=== PATIENT | male | born 2005 ===

== ENCOUNTER 2024-08-02 00:54 | Outpatient (CLI) | payer BC, SELFPAY | END 2024-08-02 00:55 | disposition home or self-care (01) | PROVIDERS: Visit Provider Family Medicine | DX: R45.851 Suicidal ideations (principal) | CPT/HCPCS: A0425; A0427 ==

== ENCOUNTER 2024-08-02 01:22 | Emergency (ER) | payer BC, SELFPAY ==
[2024-08-02] VITALS (30 sets, daily range): BP systolic 102–120; BP diastolic 60–80; PULSE 58–78; RESP 16–18; TEMP 36.6; O2SAT 94–100; BMI 33.9
--- NOTE | 2024-08-02 01:34 | CRLHL7_ITS ---
For Patients: As a result of the Cures Act, medical imaging exams and procedure reports are released immediately into your electronic medical record. You may view this report before your referring provider. If you have questions, please contact your health care provider. INDICATION: Intoxication. Concern for head injury. TECHNIQUE: CT head without contrast. COMPARISON: None. FINDINGS: No acute intracranial hemorrhage. No CT evidence of recent territorial infarct. No hydrocephalus or midline shift. Normal cerebral parenchymal volume. Visualized paranasal sinuses and mastoid air cells are well ventilated. No acute calvarial fracture is evident. IMPRESSION: No acute intracranial abnormality. Please note that all CT scans at this facility use dose modulation, iterative reconstruction, and/or weight-based dosing when appropriate to reduce radiation dose to as low as reasonably achievable. Dictated by Guevara Moody MD @ 08/02/2024 2:34:43 AM (Electronically Signed)
--- NOTE | 2024-08-02 01:34 | CRLHL7_ITS ---
For Patients: As a result of the Century Cures Act, medical imaging exams and procedure reports are released immediately into your electronic medical record. You may view this report before your referring provider. If you have questions, please contact your health care provider. INDICATION: Intoxication. Concern for injury. TECHNIQUE: CT cervical spine without contrast. COMPARISON: None. FINDINGS: No acute fracture or suspicious osseous lesion. Atlantoaxial and atlanto occipital alignment are maintained. Cervical vertebral bodies maintain normal heights with straightened lordosis. No significant spondylolisthesis. No significant spondylosis or disc space height loss. Paraspinal soft tissues grossly within normal limits. Visualized lung apices are clear. IMPRESSION: No acute cervical spine abnormality. Please note that all CT scans at this facility use dose modulation, iterative reconstruction, and/or weight-based dosing when appropriate to reduce radiation dose to as low as reasonably achievable. Dictated by Guevara Moody MD @ 08/02/2024 2:37:54 AM (Electronically Signed)
--- NOTE | 2024-08-02 01:40 | ED_ITS ---
HPI - Alcohol General Date Seen: 08/02/24 Chief Complaint: Alcohol/Intoxication Stated Complaint: ETOH Time Seen by Provider: 08/02/24 01:23 Source: patient, EMS and RN notes reviewed Mode of arrival: EMS Limitations: altered mental status History of Present Illness HPI narrative: Patient is a 19-year-old gentleman from [place], who was found on the floor of a residence, friends called EMS, because they were unable to wake him up. He threw up once on the way here, they did give him Zofran, initially was a red medical, due to hypotension. And saturations at 72%. Here patient really gives no history but withdrawals to pain and able to tell me he goes to [place], and was drinking tonight 8 drinks. Denies falling hitting his head, denies any drugs or illicit substances. Is on no chronic medications and has no allergies. GCS is 11/15. Score withdrawals and localizes pain, confused, eye opening to pain. Denies falling and hitting his head, complaint: alcohol intoxication Last drink: hours (ago) Previous visits for alcohol intoxication: No Recent trauma: No Associated symptoms: vomiting Severity: severe Treatments prior to arrival: anti-emetics Review of Systems Status of ROS Reports: unobtainable due to medical condition and unobtainable due to mental status Exam Narrative: Exam Narrative: On examination in room 8, he is in no apparent distress his vital signs are stable, the nurse has him on oxygen but on room air he was 97%. GCS is 11/15. Nontoxic looking, with some vomitus on the lower extremities, withdrawals all his extremities to pain, I do not see any evidence of any trauma or is head or neck. Pupils equal round reactive to light, nystagmus is noted. Oropharynx is normal, cervical spine nontender, log-rolled, no palpable tenderness bruising or injury noted over his bat back, torso, good air entry bilaterally heart sounds no clicks murmurs or gallops abdomen is soft, no guarding no organomegaly bowel sounds are normal, pelvis is normal stable to rocking, normal male genitalia uncircumcised, moves all extremities independently and well no evidence of trauma. Smells of alcohol Const: Vital Signs, click to edit/add: Vital Signs - 24 hr 08/02/24 01:34 08/02/24 01:34 08/02/24 01:37 Temperature 97.8 F Pulse Rate Pulse Rate [Pulse Oximeter] 65 Respiratory Rate 16 Blood Pressure Blood Pressure [Ri ght Upper Arm] 120/80 Pulse Oximetry 100 100 97 Oxygen Delivery Me thod Room Air Room Air 08/02/24 01:49 08/02/24 01:56 08/02/24 02:00 Temperature Pulse Rate 58 L 60 74 Pulse Rate [Pulse Oximeter] Respiratory Rate 18 Blood Pressure 109/71 Blood Pressure [Ri ght Upper Arm] Pulse Oximetry 96 98 97 Oxygen Delivery Me thod 08/02/24 02:02 08/02/24 02:18 08/02/24 02:30 Temperature Pulse Rate 60 63 Pulse Rate [Pulse Oximeter] Respiratory Rate 16 Blood Pressure 110/75 105/73 Blood Pressure [Ri ght Upper Arm] Pulse Oximetry 100 99 Oxygen Delivery Me thod 08/02/24 02:32 08/02/24 02:45 08/02/24 03:02 Temperature Pulse Rate 62 69 71 Pulse Rate [Pulse Oximeter] Respiratory Rate 16 16 Blood Pressure 108/63 107/62 Blood Pressure [Ri ght Upper Arm] Pulse Oximetry 100 99 98 Oxygen Delivery Me thod 08/02/24 03:15 08/02/24 03:30 08/02/24 03:32 Temperature Pulse Rate 65 61 60 Pulse Rate [Pulse Oximeter] Respiratory Rate 16 Blood Pressure 105/66 Blood Pressure [Ri ght Upper Arm] Pulse Oximetry 100 98 96 Oxygen Delivery Me thod 08/02/24 03:45 08/02/24 04:00 08/02/24 04:02 Temperature Pulse Rate 68 74 73 Pulse Rate [Pulse Oximeter] Respiratory Rate 16 16 Blood Pressure 102/60 Blood Pressure [Ri ght Upper Arm] Pulse Oximetry 95 94 94 Oxygen Delivery Me thod 08/02/24 04:15 08/02/24 04:30 08/02/24 04:32 Temperature Pulse Rate 74 65 69 Pulse Rate [Pulse Oximeter] Respiratory Rate 16 Blood Pressure 106/72 Blood Pressure [Ri ght Upper Arm] Pulse Oximetry 95 99 97 Oxygen Delivery Me thod 08/02/24 04:45 08/02/24 05:00 08/02/24 05:02 Temperature Pulse Rate 66 71 72 Pulse Rate [Pulse Oximeter] Respiratory Rate 16 Blood Pressure 108/77 Blood Pressure [Ri ght Upper Arm] Pulse Oximetry 99 96 96 Oxygen Delivery Me thod 08/02/24 05:15 08/02/24 05:30 08/02/24 05:32 Temperature Pulse Rate 78 63 62 Pulse Rate [Pulse Oximeter] Respiratory Rate 16 Blood Pressure 103/60 Blood Pressure [Ri ght Upper Arm] Pulse Oximetry 94 96 96 Oxygen Delivery Me thod 08/02/24 05:45 08/02/24 06:00 08/02/24 06:01 Temperature Pulse Rate 72 77 64 Pulse Rate [Pulse Oximeter] Respiratory Rate Blood Pressure 106/71 Blood Pressure [Ri ght Upper Arm] Pulse Oximetry 95 94 96 Oxygen Delivery Me thod 08/02/24 06:15 Temperature Pulse Rate 77 Pulse Rate [Pulse Oximeter] Respiratory Rate Blood Pressure Blood Pressure [Ri ght Upper Arm] Pulse Oximetry 94 Oxygen Delivery Me thod Documenting provider has reviewed patient's vital signs: yes Course Course ED Course: Patient is now off oxygen, maintaining his saturations at 97% on room air, able to do purposeful movements, and clearly clinically improving. Head CT and neck CT both show no acute changes. Blood alcohol returned at 0.01 which is basically normal. I wonder if this is drug related, he will have to be watched till he is clinically sober, and given his condition this will likely be in the morning. Reevaluation(s) Time of Reevaluation #1: 03:37 Reevaluation #1: Off oxygen, vital signs remained stable, easily redirectable, consistent with alcohol intoxication, as the repeat laboratory showed 0.23, initial was 0.01 which was hard to believe. We will watch him for the next few hours, once he is clinically sober he will be dischargeable. Time of Reevaluation #2: 06:59 Reevaluation #2: Patient was able to walk to the bathroom, he stood and I discussed with him for about 10 minutes is at risk alcohol use. He does not have much recollection of last night, in that he does need remember coming in by ambulance. Luckily he is doing fine now, and he is clinically sober and I think we can discharge him home. Vital Signs Vital signs: Initial Vital Signs Respiratory Effort Normal, Spontaneous, Non-Labored 08/02/24 01:34 Respiratory Depth Normal 08/02/24 01:34 Respiratory Pattern Normal 08/02/24 01:34 Pulse Oximetry 100 08/02/24 01:34 Oxygen Delivery Method Room Air 08/02/24 01:34 Vital Signs Pulse Oximetry 100 08/02/24 01:34 Oxygen Delivery Method Room Air 08/02/24 01:34 Temperature 97.8 F 08/02/24 01:37 Pulse Rate 77 08/02/24 06:15 Respiratory Rate 16 08/02/24 05:32 Blood Pressure 106/71 08/02/24 06:01 Pulse Oximetry 94 08/02/24 06:15 Oxygen Delivery Method Room Air 08/02/24 01:37 Medications Administered Medications: Discontinued Medications Generic Name Dose Route Start Last Admin Trade Name Freq PRN Reason Stop Dose Admin Sodium Chloride 1,000 mls @ 1,000 mls/hr 08/02/24 01:45 08/02/24 03:34 0.9 % Sodium Chloride 1000 Ml IV 08/02/24 02:44 Infused .Q1H BHAVESH Infusion MDM - Alcohol MDM Narrative Medical decision making narrative: Multiple differential diagnoses were considered for altered mental status. The life-threatening differential diagnosis considered include: Meningitis/encephalitis, bacteremia, subdural, cerebrovascular accident, SAH, and hypertensive encephalopathy. Other differential diagnosis included include medication effect, hypoxia, hypoglycemia, hypercalcemia, hypo or hypernatremia, hypothyroidism, hepatic encephalopathy, carbon monoxide poisoning, UTI, pneumonia, depression, seizure, as well as other etiologies. I suspect this is from alcohol, blood pressures are normal, we will go ahead and do labs, I will keep the IV. He will need to be monitored but at the current time he does not need to be intubated. He is maintaining his airway well. Get the normal labs, drug screen, liver function tests, acetaminophen salicylates Differential Diagnosis Differential diagnosis: Likely alcohol withdrawal delirium, hypomagnesemia, alcohol intoxication, alcohol ketoacidosis and alcohol withdrawal seizure Medical Records Attestation: I reviewed the patient's medical records. Medical records narrative: No previous records in our system Lab Data Attestation: I reviewed the patient's lab results. Lab results narrative: I had them rerun the alcohol level, this did come back at 0.23 which is consistent clinically with the situation I see. He was not clinically consistent with a 0.01 initially. Labs: Lab Results 08/02/24 08/02/24 08/02/24 Range/Units 01:46 01:49 02:23 WBC 6.75 (4.50-11.00) K/uL RBC 4.31 (4.30-5.90) m/uL Hgb 12.2 L (13.5-17.5) gm/dL Hct 37.2 (37.0-53.0) % MCV 86 (80-100) fL MCH 28 (26-34) pg MCHC 33 (32-36) gm/dL RDW Coeff of Tutu 13.2 (11.5-15.5) % Plt Count 156 (140-440) K/uL Neut % (Auto) 60.9 (42.0-72.0) % Lymph % (Auto) 32.1 (20-44) % [place] % (Auto) 5.6 (0.0-11.0) % Eos % (Auto) 0.7 (0.0-7.0) % Baso % (Auto) 0.4 (0.0-3.0) % Neut # (Auto) 4.10 (1.7-7.0) K/uL Lymph # (Auto) 2.17 (0.90-2.90) K/uL [place] # (Auto) 0.40 (0.00-0.90) K/UL Eos # (Auto) 0.05 (0.00-0.50) K/uL Baso # (Auto) 0.03 (0.00-0.30) K/uL Abs Immat Gran (auto) 0.02 (0.00-0.30) K/uL Imm/Tot Granulo (auto) 0.3 % Carboxyhemoglobin (0.0-5.0) % Sodium 143 (135-149) mmol/L Potassium 3.3 L (3.6-5.1) mmol/L Chloride 108 (96-114) mmol/L Carbon Dioxide 26 (20-32) mmol/L Anion Gap 9 (7-15) mEq/L BUN 18 (5-24) mg/dL Creatinine 1.0 (0.5-1.5) mg/dL Estimated Creat Clear 128.26 Estimated GFR 110 ml/min Glucose 114 (60-115) mg/dL Calcium 8.2 L (8.4-10.6) mg/dL Total Bilirubin 0.2 (0.1-1.5) mg/dL Direct Bilirubin 0.1 (0.0-0.5) mg/dL AST 78 H (12-35) U/L ALT 58 H (4-50) U/L Alkaline Phosphatase 52 (40-150) U/L Troponin I < 0.01 L (0.01-0.04) ng/mL Total Protein 6.8 (6.0-8.3) g/dL Albumin 4.3 (3.3-5.0) g/dL Salicylates < 1.0 L (1.0-10) mg/dL Acetaminophen < 10.0 L (10.0-30.0) ug/mL Ethyl Alcohol 0.23 H (0.01-0.03) % 08/02/24 Range/Units 03:11 WBC (4.50-11.00) K/uL RBC (4.30-5.90) m/uL Hgb (13.5-17.5) gm/dL Hct (37.0-53.0) % MCV (80-100) fL MCH (26-34) pg MCHC (32-36) gm/dL RDW Coeff of Tutu (11.5-15.5) % Plt Count (140-440) K/uL Neut % (Auto) (42.0-72.0) % Lymph % (Auto) (20-44) % [place] % (Auto) (0.0-11.0) % Eos % (Auto) (0.0-7.0) % Baso % (Auto) (0.0-3.0) % Neut # (Auto) (1.7-7.0) K/uL Lymph # (Auto) (0.90-2.90) K/uL [place] # (Auto) (0.00-0.90) K/UL Eos # (Auto) (0.00-0.50) K/uL Baso # (Auto) (0.00-0.30) K/uL Abs Immat Gran (auto) (0.00-0.30) K/uL Imm/Tot Granulo (auto) % Carboxyhemoglobin 2.4 (0.0-5.0) % Sodium (135-149) mmol/L Potassium (3.6-5.1) mmol/L Chloride (96-114) mmol/L Carbon Dioxide (20-32) mmol/L Anion Gap (7-15) mEq/L BUN (5-24) mg/dL Creatinine (0.5-1.5) mg/dL Estimated Creat Clear Estimated GFR ml/min Glucose (60-115) mg/dL Calcium (8.4-10.6) mg/dL Total Bilirubin (0.1-1.5) mg/dL Direct Bilirubin (0.0-0.5) mg/dL AST (12-35) U/L ALT (4-50) U/L Alkaline Phosphatase (40-150) U/L Troponin I (0.01-0.04) ng/mL Total Protein (6.0-8.3) g/dL Albumin (3.3-5.0) g/dL Salicylates (1.0-10) mg/dL Acetaminophen (10.0-30.0) ug/mL Ethyl Alcohol 0.22 H (0.01-0.03) % ECG Data Attestation: I personally reviewed and interpreted this ECG as follows: ECG interpretation date: 08/02/24 Prior ECG tracings: not available for review Interpretation: EKG shows normal sinus rhythm, normal QRS QT QTC. Early repolarization is noted, Assessment: Normal EKG Discharge Plan Discharge Clinical Impression: Alcoholic intoxication Patient Disposition: Home, Self-Care Instructions: Alcohol Intoxication (ED), Abuse of Alcohol (DC), At-Risk Alcohol Use (ED) Additional Instructions: Home rest, avoidance of alcohol for the next 48 hours, as we discussed your liver enzymes are elevated telling me that the alcohol is harming your liver, and you should avoid alcohol at least keep it within 2 oz per day. If you need help with this issue, following up with the nurse practitioner in [place] would be a good idea. Return as needed. Activity Level: Light activity Discharge Diet: Regular Follow Up/Referrals: Provider,Not a Local [Primary Care Provider] - Stand Alone Forms: [employer] Info Instructions
[2024-08-02 01:50] LABS: Basophils Absolute Auto 0.03 K/uL (0.00-0.30); Basophils Percent Auto 0.4 % (0.0-3.0); Eosinophils Absolute Auto 0.05 K/uL (0.00-0.50); Eosinophils Percent Auto 0.7 % (0.0-7.0); Hematocrit 37.2 % (37.0-53.0); Hemoglobin* 12.2 gm/dL (13.5-17.5); Immature Granulocytes Abs Auto 0.02 K/uL (0.00-0.30); Immature Granulocytes Pct Auto 0.3 %; Lymphocytes Absolute Auto 2.17 K/uL (0.90-2.90); Lymphocytes Percent Auto 32.1 % (20-44); Mean Corpuscular HGB Conc 33 gm/dL (32-36); Mean Corpuscular Hemoglobin 28 pg (26-34); Mean Corpuscular Volume 86 fL (80-100); Monocytes Percent Auto 5.6 % (0.0-11.0); Neutrophils Percent Auto 60.9 % (42.0-72.0); Platelet Count* 156 K/uL (140-440); RDW Coefficient of Variation % 13.2 % (11.5-15.5); Red Blood Count 4.31 m/uL (4.30-5.90); White Blood Count* 6.75 K/uL (4.50-11.00)
[2024-08-02] MEDS: 0.9 % SODIUM CHLORIDE 1000 ml 1,000 ML IV (01:55)
[2024-08-02 02:00] LABS: Slide Review Reflex No
[2024-08-02 02:02] LABS: Albumin* 4.3 g/dL (3.3-5.0)
[2024-08-02 02:03] LABS: Chloride* 108 mmol/L (96-114); Potassium* 3.3 mmol/L (3.6-5.1); Sodium* 143 mmol/L (135-149)
[2024-08-02 02:05] LABS: Anion Gap 9 mEq/L (7-15); Aspartate Amino Transferase* 78 U/L (12-35); Bilirubin Direct* 0.1 mg/dL (0.0-0.5); Bilirubin Total* 0.2 mg/dL (0.1-1.5); Carbon Dioxide* 26 mmol/L (20-32); Est. Creatinine Clearance* 128.26; Estimated Glomerular Filt Rate 110 ml/min; Total Protein* 6.8 g/dL (6.0-8.3)
[2024-08-02 02:06] LABS: Alanine Aminotransferase* 58 U/L (4-50); Alkaline Phosphatase* 52 U/L (40-150); Blood Urea Nitrogen* 18 mg/dL (5-24); Calcium* 8.2 mg/dL (8.4-10.6); Glucose* 114 mg/dL (60-115)
--- OUTSIDE RECORDS SUMMARY | 2024-08-02 02:16 | XMS_ITS | Clinical Summary ---
Author Organization [facility] Address [id number], [place] [address] Care Team Providers Care Director Of Infection Prevention Name Role Phone Found, No Pcp MD Primary Care Provider Unavailab le Source Comments You are receiving this document as you are listed as the primary care provider,follow-up provider, or the patient has been referred to you for consultation.This is in compliance with the Medicare and[facility] EHR Incentive Program,which states Providers who transition their patient to another setting of careor provider of care or refers their patient to another provider of care shouldprovide summary care record for each transition of care or referral. Producteev Allergies No known active allergies Medications No known medications Active Problems No known active problems Immunizations Name Administration Dates Next Due 9vHPV (Gardasil 9) 12/13/2023 DTaP 03/11/2008, 5,2003,08/10,2003 HepA Ped/Adol (1-18 yrs) 09/29/2009,02/16/2009 HepB Ped/Adol (0-18 yrs) 01/08/2004,2003,1 Hib, Unspecified Formulation 07/14/2004, 2003,2003,06/09 IPV (Polio) 10/12/2004, 4,2003,06/09 Influenza IIV4 (Quadrivalent ) 0.5mL (91546) 03/18/2020 Influenza, Unspecified Formulation 06/22,05/21/2013,05/13/2012,06/17 MCV4 Menveo 2m.+ (two vial) 03/18/2020 MMR 03/11/2008,07/14/2004 Meningococcal MCV4, Unspecif ied Formulation 11/06/2014 Pfizer Bivalent 12+ 08/01/2022 Pfizer COVID-19 12+ 12/13/2023 Pfizer Monovalent 12+ 12/05/2021,02/08/2021 Pfizer Monovalent 12+ Purple Top 01/12/2021 Pneumococcal 7, PED 10/12/2004, 4,2003,06/09 Tdap 11/06/2014 Varicella 03/11/2008,07/14/2004 Family History Medical History Relation Name Comments No Known Problems Father No Known Problems Mother Asthma Maternal Aunt 1 Virginie Cancer, Breast Maternal Aunt 2 Michaela ??? on typ e Stroke Maternal Grandmother Acacia No Known Problems Sister Blood clots Negative Family History Cancer, Colon Negative Family History Cancer, Prostate Negative Family History Diabetes Negative Family History Drug Abuse Negative Family History Heart Disease Negative Family History Kidney Disorder Negative Family History Liver Disease Negative Family History Mental Disorder Negative Family History Seizure Disorder Negative Family History Thyroid Disorder Negative Family History Relation Name Status Comments Father Mother Maternal Aunt 1 Virginie Maternal Aunt 2 Michaela Maternal Grandfather Alive Maternal Grandmother Acacia Alive Paternal Grandfather Paternal Grandmother Alive Sister Social History Tobacco Use Types Packs/Day Years Used Date Smoking Tobacco: Never Passive Smoke Exposure: Never Smokeless Tobacco: Never Alcohol Use Standard Drinks/Week Comments Never 0 (1 standard drink = 0.6 oz pur e alcohol) AUDIT-C Answer Date Recorded Q1: How often do you have a drink containing alc ohol? Never 03/18/2020 Average Number of Drinks Not on file 020 Frequency of Binge Drinking Not on file 09/2019 PHQ-2 Answer Date Recorded PHQ-2 Score 0 12/13/2023 Financial Resource Strain Answer Date R ecorded Is it hard for you to pay fo r the very basics like food, housing, medical care or heating? No 12/12/2023 Food Insecurity Answer Date Recorded Does your food run out before you have the money to buy more? No 12/12/2023 Transportation Needs Answer Date Record ed Does a lack of transportatio n keep you from your medical appointments or from getting your medications? No 024 Sex and Gender Information Value Date Recorded Sex Assigned at Not on file Gender Identity Not on file Sexual Orientation Not on file Last Filed Vital Signs Vital Sign Reading Time Taken Comments Blood Pressure 139/71 12/13/2023 11:16 AM CDT Pulse 71 12/13/2023 11:16 AM CDT Temperature - - Respiratory Rate - - Oxygen Saturation - - Inhaled Oxygen Concentration - - Weight 101.6 kg (224 lb) 12/13/2023 11:16 AM CDT Height 180.5 cm (5' 11.06) 12/13/2023 11:16 AM CDT Body Mass Index 31.19 12/13/2023 11:16 AM CDT Plan of Treatment Health Maintenance Due Date Last Done Comments Hep C Screening (Preventive Services) 2003 HIV Screening (Preventive Services) 2019 HPV Vaccine (2 - Male 3-dose series) 01/10/2024 12/13/2023 COVID-19 Vaccine ( - season) 2024 12/13/2023, 08/01/2022, 12/05/2021, Additional history exists Influenza (#1) 2024 08/01/2022, 09/2019, 06/22/2015, Additional history exists DTaP/Tdap/Td (7 - Tdap) 11/06/2024 11/07/19 15, 03/11/2008, 10/12/2004, Additional history exists Adult Preventive Visit 12/12/2024 12/13/2023, 2019 Zoster/Shingles (1 of 2) 2053 HepB Completed 01/08/2004, 06/17, 2003 Hib Completed 07/14/2004, 09/14, 2003, Additional history exists IPV (Polio) Completed 10/12/2004, 09/2003, 2003, Additional history exists Pneumococcal Aged Out 10/12/2004, 09/2003, 2003, Additional history exists No longer eligible based on patient's age to complete this topic Varicella Completed 03/11/2008, 07/14/2004 HepA Completed 09/29/2009, 02/16/2009 MCV4 Completed 03/18/2020, 11/06/2014 Care Teams Director Of Infection Prevention Relationship Specialty Start Date End Date Found, No Pcp, [address] [place] [address] PCP - General 03/06/22
[2024-08-02 02:22] LABS: Troponin I* < 0.01 ng/mL (0.01-0.04)
[2024-08-02 02:34] LABS: Acetaminophen* < 10.0 ug/mL (10.0-30.0); Salicylate* < 1.0 mg/dL (1.0-10)
[2024-08-02 03:02] LABS: Ethanol* 0.23 % (0.01-0.03)
[2024-08-02 03:12] LABS: Carboxyhemoglobin* 2.4 % (0.0-5.0)
[2024-08-02 03:32] LABS: Ethanol* 0.22 % (0.01-0.03)
[2024-08-02 07:18] LABS: Amphetamine Screen Urine Negative (Negative); Barbiturate Screen Urine Negative (Negative); Benzodiazepines Screen Urine Negative (Negative); Cannabinoid Screen Urine Negative (Negative); Cocaine Screen Urine Negative (Negative); Methadone Screen Urine Negative (Negative); Methamphetamines Screen Urine Negative (Negative); Opiate Screen Urine Negative (Negative); Oxycodone Screen Urine Negative (Negative); Phencyclidine Screen Urine Negative (Negative); Tricyclic Antidepressant Urine Negative (Negative)
== END 2024-08-02 07:06 | disposition home or self-care (01) ==
PROVIDERS: Emergency Provider Family Medicine
DX: F10.129 Alcohol abuse with intoxication, unspecified (principal)
CPT/HCPCS: 36415; 70450; 72125; 80048; 80076; 80143; 80179; 80306; 82077; 82375; 83930; 84484; 85025; 93005; 94761; 96360; 99284; 99285; J7030